=== PATIENT | female | born 1955 | race African-American/Black ===

== ENCOUNTER 2018-07-23 18:39 | Emergency (ER) | END 2018-07-23 20:02 | disposition left against medical advice (07) ==

== ENCOUNTER 2019-04-17 16:51 | Inpatient (IN) | payer OTHER ==
[~2019-04-17] VITALS: Ht 162.6 cm; Wt 66.1 kg
[~2019-04-17 16:51] MED LIST: ACET325T33 PO; ATEN100T PO; ATOR20TA38 PO; BENA20TA4 PO; HYDR25TA6 PO; LEVO150T7 PO; NICO-544 TD; OMEP20CA17 PO; THIA50TA11 PO; ZOLP10TA5 PO
[2019-04-17] MEDS ORDERED: FAMOTIDINE 20 MG INJ IV STA (17:51)
[2019-04-17] MEDS ORDERED: OCTREOTIDE 50 MCG in SOD CHLORIDE 0.9% 25 ML IVPB STA (17:51)
[2019-04-17] MEDS ORDERED: SOD CHLORIDE 0.9% 1,000 ML IV STA (17:51)
[2019-04-17] MEDS ORDERED: CEFTRIAXONE 1 GM/50 ML (PMX) 50 ML IVPB STA (17:51)
[2019-04-17] MEDS ORDERED: OCTREOTIDE 500 MCG in SOD CHLORIDE 0.9% 49 ML IV STA (17:51)
[2019-04-17] MEDS ORDERED: ONDANSETRON 4 MG INJ IV STA (17:51)
[2019-04-17] MEDS ORDERED: PANTOPRAZOLE 40 MG INJ IV STA (17:51)
[2019-04-17] MEDS ORDERED: morphine 4 MG/ML VIAL IV STA (17:51)
[2019-04-17] MEDS ORDERED: ACETAMINOPHEN 325 MG TAB PO PRN (19:30)
[2019-04-17] MEDS ORDERED: morphine 2 MG INJ IV PRN (19:30)
[2019-04-17] MEDS ORDERED: HYDROCODONE/APAP (5/325) TAB PO PRN (19:30)
[2019-04-17] MEDS ORDERED: NACL 0.9% 3 ML SYG IV SCH (19:30)
[2019-04-17] MEDS ORDERED: DOCUSATE SODIUM 100 MG CAP PO PRN (19:30)
[2019-04-17] MEDS ORDERED: BISACODYL (EC) 5 MG TAB PO PRN (19:30)
[2019-04-17] MEDS ORDERED: MAGNESIUM HYDROXIDE 30ML CUP PO PRN (19:30)
[2019-04-17] MEDS ORDERED: ACETAMINOPHEN 650 MG SUPP PR PRN (19:30)
[2019-04-17] MEDS: ONDANSETRON 4 MG INJ IV PRN (19:57)
[2019-04-17] MEDS: SOD CHLORIDE 0.9% 1,000 ML IV SCH (20:07)
[2019-04-17 20:45] VITALS: Ht 162.6 cm; Wt 66.1 kg
[2019-04-17] MEDS ORDERED: NICOTINE (14 MG/24 HR) PATCH TRANSDERM ONE (21:00)
[2019-04-18] VITALS (8 sets, daily range): BP systolic 125–177; BP diastolic 72–96; PULSE 60–71; RESP 17–20
[2019-04-18] MEDS: OCTREOTIDE 1 MG in DEXTROSE 5% 95 ML IV SCH (05:30)
[2019-04-18] MEDS: SOD CHLORIDE 0.9% 1,000 ML IV SCH ×2 (05:31→14:48)
[2019-04-18] MEDS: MULTIVITAMINS 10 ML, THIAMINE 100 MG, FOLIC ACID 1 MG in SOD CHLORIDE 0.9% 1,000 ML IVPB SCH (09:36)
[2019-04-18] MEDS ORDERED: BISACODYL (EC) 5 MG TAB PO ONE (15:00)
[2019-04-18] MEDS ORDERED: PEG/ELECTROLYTES 4L BTL PO ONE (16:00)
[2019-04-18] MEDS: ONDANSETRON 4 MG INJ IV PRN (17:58)
[2019-04-18] MEDS ORDERED: CLONIDINE 0.1 MG/24 HR PATCH TRANSDERM SCH (18:00)
[2019-04-19] VITALS (17 sets, daily range): BP systolic 137–176; BP diastolic 78–97; PULSE 58–69; RESP 17–24
[2019-04-19] MEDS: OCTREOTIDE 1 MG in DEXTROSE 5% 95 ML IV SCH (00:36)
[2019-04-19] MEDS ORDERED: BISACODYL (EC) 5 MG TAB PO ONE (05:00)
[2019-04-19] MEDS ORDERED: PEG/ELECTROLYTES 4L BTL PO ONE (05:00)
[2019-04-19] MEDS: MULTIVITAMINS 10 ML, THIAMINE 100 MG, FOLIC ACID 1 MG in SOD CHLORIDE 0.9% 1,000 ML IVPB SCH (09:08)
[2019-04-19] MEDS: SOD CHLORIDE 0.9% 1,000 ML IV SCH (09:09)
[2019-04-19] MEDS ORDERED: PROPOFOL 60 ML ONE (12:07)
[2019-04-19] MEDS ORDERED: LIDOCAINE 2% (SDV) 5 ML INJ ONE (12:07)
[2019-04-19] MEDS ORDERED: hydrALAzine 20 MG INJ IV PRN (12:30)
[2019-04-19] MEDS ORDERED: ONDANSETRON 4 MG INJ IV PRN (12:30)
[2019-04-19] MEDS ORDERED: LABETALOL HCL 20MG INJ IV PRN (12:30)
[2019-04-19] MEDS ORDERED: PROPOFOL 20 ML ONE (13:10)
== END 2019-04-19 16:51 | disposition home or self-care (01) | DRG 379 ==
LOC: E/R 16:51 → TEL 19:14
PROVIDERS: ADMIT Family Medicine; ATTEND Family Medicine
PROC: 0DB98ZX Excision of Duodenum, Via Natural or Artificial Opening Endoscopic, Diagnostic (ICD-10-PCS; principal; 2019-04-19 11:00)
PROC: 0DBH8ZX Excision of Cecum, Via Natural or Artificial Opening Endoscopic, Diagnostic (ICD-10-PCS; 2019-04-19 11:00)
DX: K92.2 Gastrointestinal hemorrhage, unspecified (principal); B19.20 Unspecified viral hepatitis C without hepatic coma; K70.10 Alcoholic hepatitis without ascites; F10.10 Alcohol abuse, uncomplicated; E78.5 Hyperlipidemia, unspecified; I12.9 Hypertensive chronic kidney disease with stage 1 through stage 4 chronic kidney disease, or unspecified chronic kidney disease; N18.9 Chronic kidney disease, unspecified; E03.9 Hypothyroidism, unspecified; F17.200 Nicotine dependence, unspecified, uncomplicated; F32.9 Major depressive disorder, single episode, unspecified; J44.9 Chronic obstructive pulmonary disease, unspecified; K31.7 Polyp of stomach and duodenum; D12.0 Benign neoplasm of cecum; I85.10 Secondary esophageal varices without bleeding; Y90.0 Blood alcohol level of less than 20 mg/100 ml; R63.4 Abnormal weight loss; Z68.25 Body mass index [BMI] 25.0-25.9, adult; Z90.81 Acquired absence of spleen; Z87.11 Personal history of peptic ulcer disease
CPT/HCPCS: 71045; 74176; 76705; 80048; 80053; 80307; 81001; 83036; 83690; 83735; 84100; 84439; 84443; 84480; 84484; 85025; 85610; 85730; 86704; 86706; 86709; 86803; 86850; 86900; 86901; 87045; 87075; 87205; 87340; 88305; 93005; 96374; 96375; C9113; J0696; J2270; J2354; J2405; J3411; J7030